=== PATIENT | female | born 1990 | race Caucasian/White ===

== ENCOUNTER 2016-10-09 07:54 | Inpatient (IN) | payer OTHER ==
[~2016-10-09] VITALS: Ht 154.9 cm; Wt 73.9 kg
[~2016-10-09 07:54] MED LIST: NAPR500T PO
[2016-10-09] MEDS ORDERED: Lactated Ringer's 1,000 ML IV ONE (08:31)
[2016-10-09] MEDS ORDERED: Lactated Ringer's 1,000 ML IV PRN (08:42)
[2016-10-09] MEDS ORDERED: Lactated Ringer's 500 ML IV ONE (08:44)
[2016-10-09] MEDS ORDERED: Lactated Ringer's 1,000 ML IV SCH ×2 (08:44→10:49)
[2016-10-09] MEDS ORDERED: Atropine 1 mg/10 mL (Code) Syringe IVPUSH PRN (08:45)
[2016-10-09] MEDS ORDERED: fentaNYL 2 mCg/mL-Bupiv 0.125% 100 ML EPIDURAL SCH (08:45)
[2016-10-09] MEDS ORDERED: Methylergonovine 0.2 mg/mL Inj IM PRN ×2 (08:45→10:50)
[2016-10-09] MEDS ORDERED: Oxytocin 10 Unit/mL Inj IM PRN ×2 (08:45→10:50)
[2016-10-09] MEDS ORDERED: Ondansetron 2 mg/mL 2 mL Inj IVPUSH PRN (08:45)
[2016-10-09] MEDS ORDERED: Carboprost 250 mCg/mL Inj IM PRN ×2 (08:45→10:50)
[2016-10-09] MEDS ORDERED: Sodium Chloride LOK Flush 10 mL Syringe IVFLUSH PRN (08:45)
[2016-10-09] MEDS ORDERED: Oxytocin 30 Units/500 mL LR 30 UNITS in IV Premix 1 EACH IV PRN ×2 (08:45→10:50)
[2016-10-09] MEDS ORDERED: Hemorrhage Kit, Post Partum XX ONE ×2 (08:45→10:50)
[2016-10-09] MEDS ORDERED: EPHEDrine Sulfate 50 mg/mL Inj IVPUSH PRN (08:45)
[2016-10-09 08:46] LABS: BASOPHILS % (AUTO) 0.3 % (0-3); EOSINOPHILS % (AUTO) 0.6 % (0-5); Mean Corpuscular Hemoglobin 28.5 pg (27.0-35.0); Mean Corpuscular Volume 86.5 fL (81-100); NEUTROPHILS % (AUTO) 60.8 % (40-74); Platelet Count 176 bil/L (150-400)
[2016-10-09] MEDS ORDERED: Oxytocin 30 Units/500 mL LR Premix IV ONE (08:47)
[2016-10-09] MEDS ORDERED: hydrALAZINE 20 mg/mL Inj ONE (09:24)
--- NOTE | 2016-10-09 09:24 | PCM.HPANE ---
Patient Data Surgeon Admitting Provider:Sebastien Ayon MD Attending Provider:Sebastien Ayon MD Primary Care Physician:Raquel Other Provider:Yordan Segura Anesthesia Reason for Visit Term Labor TERM LABOR Ht/WT & BMI Body Mass Index Allergies Coded Allergies: No Known Allergies (Verified , 01/25/08) Diabetes History Hx Diabetes?: No Medications Hypertension Medication: No Home Meds Incl Beta Desirae: No Active Scripts Naproxen (Naprosyn)500 Mg [id number] Mg PO BID PRN For Pain #30 TABLET Prov:Rj Roper MD 02/03/16 History History of ENT Problems?: No Hx of Heart Problems?: No Cardiovascular History: Denies:: Hypertension Hx of Respiratory Problem?: No Respiratory History: Denies:: Tuberculosis Hx Neurologic Problems?: No Hx of GI Problems?: No Hx of Problems?: No Female Hx: Positive for:: Currently Hx Surgeries?: Yes () Hx Diabetes: No Hx Alcohol Use: NoHx Substance Use: Yes (Marijuana ) Smoking Status: Current Every Day Smoker Have You Smoked inLast 12 mo: Yes Stop/Bang LYNNETTE Risk Assessment: Low Risk, <3 Yes Risk Assessment Category Category 1A: Patient has history of documented sleep apnea, and HAS NOT received any narcotic, sedative or anesthesia administration during this stay. Category 1B: Patient has history of documented sleep apnea, and HAS received any narcotic , sedative or anesthesia administration during this stay Category 2: Patient has SUSPECTED Obstructive Sleep Apnea, and HAS received any narcotic , sedative or anesthesia administration during this stay. Category 3: Patient has SUSPECTED Obstructive Sleep Apnea and HAS NOT received narcotic, sedative or anesthesia administration during this stay. Category 4: Outpatient in Procedural Areas with known sleep apnea or who screen positive for High Risk via the STOP/BANG questionnaire. Exam Exam General Appearance: Moderate Distress HEENT/AIRWAY: MP 2 Lungs: Clear to Auscultation, Normal Air Movement Heart: Exam Unremarkable, Regular Rate/Rhythm, No Murmurs/Rubs/Gallops Meds/Labs/Diagnostics Labs Test 10/09/16 08:25 Plan Impression Patient chart reviewed, patient interviewed and anesthestic plan with risks, benefits, and alternatives discussed, and informed consent obtained. ASA Physical Status: ASA3 Severe Disease (substance use) Anesthetic Plan: Epidural Bene/Risks/Altern/Consents: Yes HP Complete Prior to Induction: Yes Ottoniel Stephens MD Oct 09, 2016 08:42
[2016-10-09] MEDS ORDERED: Magnesium Sulfate 4 Gm/100 mL Water Premix IV ONE (09:45)
[2016-10-09] MEDS ORDERED: Magnesium Sulfate 20 Gm/500 mL Water Premix IV ONE (09:46)
[2016-10-09 10:32] LABS: APPEARANCE,URINE HAZY (CLEAR,HAZY); COLOR,URINE STRAW (YELLOW); OCCULT BLOOD,URINE NEGATIVE (NEGATIVE); UROBILINOGEN,URINE NORMAL (NORMAL)
[2016-10-09] MEDS ORDERED: Benzocaine (Dermoplast) 20% 60 Gm Spray TOPICAL PRN (10:50)
[2016-10-09] MEDS ORDERED: TdaP Vaccine 0.5 mL Inj IM ONE (10:50)
[2016-10-09] MEDS ORDERED: Influenza (Adult) Vaccine 0.5 mL Syringe IM ONE (10:50)
[2016-10-09] MEDS ORDERED: Witch Hazel-Glycerin Pads TOPICAL PRN (10:50)
[2016-10-09] MEDS ORDERED: LANOlin HPA 7 Gm Ointment TOPICAL PRN (10:50)
[2016-10-09] MEDS ORDERED: Measles-Mumps-Rubella Vaccine 0.5 mL Inj SUBQ ONE (10:50)
[2016-10-09] MEDS ORDERED: Magnesium Sulf 20 Gm/500mL H2O 20 GM in IV Premix 1 EACH IV SCH (11:10)
[2016-10-09] MEDS ORDERED: Calcium GLUCOnate 10% (Gm) 1 Gm/10 mL Inj IV PRN (11:10)
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
[2016-10-09 13:44] LABS: Mean Corpuscular Hemoglobin 27.9 pg (27.0-35.0); Mean Corpuscular Volume 86.3 fL (81-100)
[2016-10-09] MEDS ORDERED: 0.9% Sodium Chloride 50 ML IV ONE (14:49)
[2016-10-09] MEDS ORDERED: Calcium GLUCOnate 10% 1 Gm/50 mL NS IV ONE ×2 (15:00)
--- NOTE | 2016-10-09 15:18 | NUR ---
Social Work Note - CPS CPS has assigned case to Nuvia Guadalupe [phone] who will come to hospital tomorrow to interview family. PANEL CUTTER provided update to Leydi CPS probation supervisor that baby boy has been placed on a medical hold. Plan: Baby in medical hold until CPS investigation identifies a plan of care. RAD Doe
[2016-10-09] MEDS ORDERED: Carboprost 250 mCg/mL Inj IM ONE (16:59)
--- NOTE | 2016-10-09 17:08 | PCM.ANEP2 ---
Post Anesthesia Evaluation ASA/CMS Post Anesthesia VS in Patient's Normal Range?: Yes Resp Stable; Airway Patent?: Yes CV Function & Hydration Stable: Yes Mental Status Recovered?: Yes Pain control Satisfactory?: Yes N/V Control Satisfactory?: Yes Ottoniel Stephens MD Oct 09, 2016 17:08
[2016-10-10 04:07] LABS: Rubella IgG Antibody 2.41 index (Immune >0.99)
[2016-10-10 06:34] LABS: Mean Corpuscular Hemoglobin 27.9 pg (27.0-35.0); Mean Corpuscular Volume 87.7 fL (81-100)
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
--- NOTE | 2016-10-10 10:24 | NUR ---
Family center: Brief Note D/A: TAIL EDGER received call from MOB's CPS worker Caro Lofton. MOB has been seen by CPS and a Family team decisional meeting is schedule at the [facility] office for 1430 on 10/11. MOB is aware that she is recommended to be in attendance. Baby continues on a medical hold and is additionally requiring continued medical care. Per CPS worker, Nursery RN has been notified about baby's continued need to be on Medical hold pending disposition of FTDM. P: FTDM schedule for 1430 on 10/11 to further determine disposition of CPS investigation. MOB aware. SERGE Mon
--- NOTE | 2016-10-10 13:27 | PCM.DIOB ---
Obstetrical Disch Instruction Dates of Hospitalization Date of Hospital Admission Oct 09, 2016 at 08:03 Providers Admitting Physician: Sebastien Ayon MD Primary Care Physician: Nopcp Attending Physician: Sebastien Ayon MD Discharge Diagnosis Problems: (1) Status: Acute ICD Code: Z33.1 (2) No care in current Status: Acute ICD Code: O09.30 (3) induced hypertension, delivered, current hospitalization Status: Acute ICD Code: O13.9 Diet Discharge Diet: No restrictions Activity Discharge Activity-General: Pelvic Rest for 6 weeks Dressing and Incisional Care Hygiene: May shower, Perineal care, Sitz bath, Dermoplast spray, Witch Brit pads, Ice Follow Up Plan Follow-up appointment: Weeks (Follow up in my Office in 6 weeks for check up.) Call your provider for: Fever or Chills, Shortness of breath, Heavy vaginal bleeding, Red painful breasts Sebastien Ayon MD Oct 10, 2016 13:27
[2016-10-10] MEDS ORDERED: IBUP-1827 PO (13:29)
[2016-10-10 13:38] VITALS: BP 132/87; PULSE 93; RESP 20
[2016-10-10 13:41] VITALS: BP 132/87; PULSE 93; RESP 20
--- NOTE | 2016-10-11 00:37 | OP ---
[address] [address] OPERATIVE REPORT PATIENT: MICHEAL CHAPMAN : 1990 MR#: [id number] ADMIT: 10/09/2016 JOB ID: [id number] DATE OF SURGERY: 10/09/2016 at 11:00 hours. SURGEON: PREOPERATIVE DIAGNOSIS(ES): POSTOPERATIVE DIAGNOSIS(ES): HISTORY: The patient was admitted to [facility] this morning perhaps at 37 weeks of gestation, without care, with positive amphetamine screen and positive marijuana screen, in labor. She previously had a section, yet also four vaginal births, including two following the , and she requested trial of labor after once again, understanding benefits and risks, signing informed consent. She has understood that uterine scar rupture this could be dangerous for she or the baby. Note that we have no GBS status or a lot of other and lab information yet. DELIVERY NOTE: The patient was given epidural for pain management and it worked somewhat. Ultimately, active phase of labor was traversed relatively rapidly until complete dilatation of the cervix. The patient then pushed well, bringing down head to position. Note some heart rate drop leading to oxygen therapy at times. Note significant hypertension (whether preeclampsia or gestational hypertension and stress-related and with potential contribution from amphetamines or other drugs on board),ultimately leading to Apresoline administration, and with initiation of magnesium sulfate therapy. Blood pressure then improved after these maneuvers. Once , head then delivered across intact perineum, followed by the shoulders, body and extremities. Baby demonstrated good tone but would not take a breath and was then handed to grain spouter after clamping and cutting of the cord and baby then cried over by the warmer. Cord blood was obtained for routine studies. Placenta with membranes were then expelled, intact. Estimated blood loss 200 cc. Uterus contracted well with massage plus intravenous Pitocin infusion. There were no lacerations as demonstrated by Betadine solution and cleansing of the vulvovaginal region. It certainly is anticipated that mother will do well during the timeframe. We will track blood pressure and provide additional antihypertensive medication if needed. We will continue magnesium sulfate therapy for planned 24 hours . We will track down labs and preeclampsia lab work. Note that grain spouter will follow the baby. Finally, we will provide sequential compression devices for patient in that she does have family history of protein S deficiency, although she has not apparently had DVT or PE. We will also continue to monitor bleeding as she carries history of heavy bleeding following each delivery in the past. Note that the patient did effectively deliver vaginally following prior section, and uterine scar was noted to be intact from internal exam. The patient will talk with CPS and Sticker On in regard to her . WILL
--- NOTE | 2016-10-11 13:43 | PATH ---
SURGICAL PATHOLOGY Attending Physician:Sebastien Ayon M.D CASE STATUS: Signed Out PATIENT NAME: MICHEAL CHAPMAN PID: [id number] : 1990 DATE COLLECTED:10/09/2016 00:00 SPECIMEN: Placenta CLINICAL HISTORY: NO CARE AMPHETAMINE USE INDUCED HYPERTENSION 1). PLACENTA FINAL DIAGNOSIS: 1.PLACENTA WITH UMBILICAL CORD AND MEMBRANES: 1. PLACENTA: 606 GRAMS. MULTIPLE PLACENTAL INFARCTS INVOLVING APPROXIMATELY 60% OF THE PLACENTAL DISK. MULTIFOCAL ACUTE ISCHEMIC CHANGES. NEGATIVE FOR SIGNIFICANT INFLAMMATION. 2.UMBILICAL CORD: 30.8 CM IN LENGTH WITH THREE NORMAL BLOOD VESSELS. CIRCUMVALLATE MARGINAL INSERTION. NEGATIVE FOR SIGNIFICANT INFLAMMATION. 3. MEMBRANES: RUPTURED 7.5 CM FROM THE FREE PLACENTAL EDGE. NEGATIVE FOR SIGNIFICANT INFLAMMATION. ICD10 CODE O43.813 GROSS DESCRIPTION: The specimen is received in formalin, labeled with the patient's name and consists of an intact placenta and includes placental disc (606 g, 16.8 x 15.8 x 3.6 cm), umbilical cord (length-30.8 cm, diameter-1.1 x 1.0 cm) and membranes. The membranes are ruptured 7.5 cm from the free edge of the placenta and are semi-translucent. The umbilical cord has a circumvallate marginal insertion and contains 3 vessels. The surface is smooth and shiny with no evidence of meconium. The maternal surface is dark maroon and with multiple nelson-yellow fibrous areas involving approximately 60% of the surface. The cotyledons have normal formation. The placental disc is spongy and contains multiple nelson-yellow fibrous nodules (2.2 x 1.5 x 0.8 cm-4.5 x 2.7 x 1.8 cm) involving approximately 60% of the placenta. No hematomas or other irregular nodules are identified. Section code: (A) edge of placenta with membranes; (B) umbilical cord; (C-D, E-F, G-H) placenta, 3 bisected full thickness sections. 10/10/16 JM MICRO DESCRIPTION: See diagnosis. ICD-9 CODES: CPT CODES: 1: 73230 Electronically Signed Out Wilton Leiva MD [facility] Pathology [facility], [place] [address] Technical component performed at [facility], [address], [place], [address]
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
== END 2016-10-10 17:00 | disposition home or self-care (01) | DRG 560 ==
LOC: FBCO 07:54 → FBC 08:03
PROVIDERS: ADMIT Obstetrics & Gynecology; ATTEND Obstetrics & Gynecology
PROC: 10E0XZZ Delivery of Products of Conception, External Approach (ICD-10-PCS; principal; 2016-10-09)
PROC: 3E033GC Introduction of Other Therapeutic Substance into Peripheral Vein, Percutaneous Approach (ICD-10-PCS; 2016-10-09)
DX: O14.14 Severe pre-eclampsia complicating childbirth (principal); Z3A.38 38 weeks gestation of pregnancy; Z37.0 Single live birth; O99.334 Smoking (tobacco) complicating childbirth; F17.210 Nicotine dependence, cigarettes, uncomplicated; O76 Abnormality in fetal heart rate and rhythm complicating labor and delivery; O99.323 Drug use complicating pregnancy, third trimester; F15.90 Other stimulant use, unspecified, uncomplicated; F12.90 Cannabis use, unspecified, uncomplicated